=== PATIENT | male | born 1990 | race Caucasian/White ===

== ENCOUNTER 2020-06-01 15:45 | Outpatient (REF) | payer OTHER, SELFPAY | END 2020-06-01 15:46 | disposition home or self-care (01) | LOC: HO.LAB 15:45 | PROVIDERS: Visit Provider Internal Medicine | DX: Z20.822 Contact with and (suspected) exposure to COVID-19 (principal) | CPT/HCPCS: 36415; C9803; U0003 ==

== ENCOUNTER → 2022-09-12 13:04 | Outpatient (BNVA) | payer MEDICAID, SELFPAY | PROVIDERS: PCP Registered Nurse; Visit Provider Nurse Practitioner Family | DX: R40.0 Somnolence (principal); R06.83 Snoring; G47.9 Sleep disorder, unspecified | CPT/HCPCS: 99202 ==

== ENCOUNTER → 2022-10-29 14:49 | Outpatient (REF) | payer MEDICAID, SELFPAY | LOC: HO.SL 14:49 | PROVIDERS: Visit Provider Nurse Practitioner Family | DX: G47.9 Sleep disorder, unspecified (principal); R40.0 Somnolence; R06.83 Snoring | CPT/HCPCS: 95806 ==

== ENCOUNTER 2024-11-21 09:19 | Outpatient (REF) | payer MEDICAID, SELFPAY ==
--- OUTSIDE RECORDS SUMMARY | 2024-11-21 09:48 | XMS_ITS | Clinical Summary ---
Author Organization [email or web address] Address [address] [place] [address] [address] [place] [address] Care Team Providers Care Roll Mechanic Name Role Phone Name, Ed FOWLER Primary Care Provider [phone] Allergies No known active allergies Medications albuterol 108 (90 Base) MCG/ACT inhaler Inhale 2 puffs every 6 (six) hours if needed for wheezing. 18 g 11 09/20/2024 Active Active Problems Problem Noted Date Diagnosed Date Insomnia 07/04/2022 Assessment & Plan (07/04/2022 10:08 AM EST): Referral to sleep medicine sent for snoring and insomnia Ordered melatonin for assistance falling asleep. Depression 07/04/2022 Assessment & Plan (07/04/2022 10:12 AM EST): BHN referral sent Vasectomy evaluation 07/04/2022 Myopia of both eyes 07/03/2022 Encounters Date Type Department Care Team Description 11/11/[address] [facility] [address] [place] [address] Maggie Moncada, OD 11/03/[address] [facility] [address] [place], [place] [phone] Timmy Abbasi MA january recalls 10/28/2024 10:30 AM EDT Office Visit [facility] [address] [place], [place] [phone] Maggie Moncada, OD Severe myopia of both eyes (Primary Dx) 09/27/2024 1:30 PM EDT Office Visit [facility] [address] [place] [address] Antwan, Maggie, OD Ptosis, congenital, right (Primary Dx); High myopia, bilateral 09/27/2024 Travel 09/20/2024 10:15 AM EDT Office Visit [facility] [address] [place] [address] Ed Felipe MD Mild intermittent asthma without complication (Primary Dx); Screening for diabetes mellitus; Screening for cholesterol level; Family planning advice 09/20/2024 Travel 09/19/[address] [facility] [address] [place] [address] Yvette Patel MA Chart Prep 09/12/[address] [facility] [address] [place] [address] Ed Felipe MD Pre-visit Planning (SDOH screening completed on 06/06/24) from Last 3 Months Immunizations Immunization Administration Dates Next Due Influenza injectable quadrivalent preservative f ree 06/27/2022 Family History Medical History Relation Name Comments Asthma Brother Lupus Father Diabetes Maternal Grandmother Hypertension Maternal Grandmother Diabetes Mother Relation Name Status Comments Brother Father Maternal Grandmother Mother Social History Tobacco Use Types Packs/Day Years Used Date Smoking Tobacco: Never Smokeless Tobacco: Never Tobacco Cessation:Counseling Given: Not Answered Alcohol Use Standard Drinks/Week Comments Never 0 (1 standard drink = 0.6 oz pur e alcohol) Depression Answer Date Recorded Patient Health Questionnaire-9 Score 4 09/20/2024 Patient Health Questionnaire-9 Score 4 09/20/2024 Last PHQ-9: Questionnaire Data Not on file 0 09/20/2024 Housing Stability Answer Date Recorded What is your housing situation today? I have radhika gu 06/06/[address] you li ve. Do you have problems with any of the following? None of the above 06/06/2024 Food Insecurity Answer Date Recorded Within the past 12 months, y ou worried that your food would run out before you got money to buy more: Never True 06/06/2024 Within the past 12 months,th e food you bought just didn't last and you didn't have enough money to get more: Never True 07/2024 Transportation Answer Date Recorded In the past 12 months, has l ack of transportation kept you from medical appts, meetings, work or from getting things needed for daily living? No 06/06/2024 Utilities Answer Date Recorded In the past 12 months, has t he electric, gas, oil or water company threatened to shut off services in your home? No 06/06/2024 Depression Answer Date Recorded Patient Health Questionnaire-2 Score 1 09/20/2024 Internet Access Answer Date Recorded Internet Access Q1 Yes 06/06/2024 Internet Access Q2 Not on file 06/06/2024 Sex and Gender Information Value Date Recorded Sex Assigned at Male 03/03/2022 10:30 AM EDT Legal Sex Male 10:30 AM EDT Gender Identity Male 03/03/2022 10:30 AM EDT Sexual Orientation Straight 03/03/2022 10 :30 AM EDT Occupation Industry Job Start Date Job End Date [employer] Not on file Not on file Not on file Last Filed Vital Signs Vital Sign Reading Time Taken Comments Blood Pressure 122/72 09/20/2024 10:08 AM EDT Pulse 67 09/20/2024 10:08 AM EDT Temperature 36.7 C (98.1 F) 09/20/2024 10:08 AM EDT Respiratory Rate 18 09/20/2024 10:08 AM EDT Oxygen Saturation 98% 09/20/2024 10:08 AM EDT Inhaled Oxygen Concentration - - Weight 60 kg (132 lb 3.2 oz) 09/20/2024 10:08 AM EDT Height 167.6 cm (5' 6 ) 09/20/2024 10:08 AM EDT Body Mass Index 21.34 09/20/2024 10:08 AM EDT Plan of Treatment Upcoming Encounters Date Type Department Care Team (Late st Contact Info) Description 02/02/2025 9:00 AM EDT Office Visit [facility] [address] [place] [id number] Name, MD Ed [address] [place] [address] Health Maintenance Due Date Last Done Comments Family Planning (PISQ) 2007 HPV Vaccines (1 - Male 3-dos e series) 2007 DTaP/Tdap/Td Vaccines (1 - Tdap) 2011 Hepatitis B Vaccines (1 of 3 - 19+ 3-dose series) 2011 Pneumococcal Vaccine: Pediatrics (0 to 5 Years) and At-Risk Patients (6 to 49) Years (1 of 2 - PCV) 2011 Dental Oral Exam 06/20/2016 12/18/2015 Dental X-Ray: Bitewings 12/18/2016 12/18/2015 Dental Prophylaxis 12/25/2016 06/26/2016 COVID-19 Vaccine (3 - 2023-2 5 season) 2024 02/24/2022, 02/03/2022 Dental X-Ray: Full Mouth 04/06/2024 021, 12/20/2015, 12/18/2015 Influenza Vaccine (#1) 2025 06/27/2022 SDOH Screening 06/06/2025 06/06/2024 Alcohol/Substance Use Screening 09/20/2025 09/20/2024 Depression Screening 09/20/2025 09/20/2024, 09/20/2024 Disability Screening 09/20/2025 09/20/2024 Tobacco Screening 10/08/2025 10/08/2024 Zoster Vaccines (1 of 2) 2042 RSV Patients and Patients Aged 60 years or older (1 - 1-dose 75+ series) 2067 HIV Screening Completed 07/04/2022 Hepatitis C Screening Completed 07/04/2022 HIB Vaccines Aged Out No longer eligi ble based on patient's age to complete this topic Hepatitis A Vaccines Aged Out No long er eligible based on patient's age to complete this topic IPV Vaccines Aged Out No longer eligi ble based on patient's age to complete this topic Meningococcal B Vaccine Aged Out No l onger eligible based on patient's age to complete this topic Meningococcal Vaccine Aged Out No jeremy louie eligible based on patient's age to complete this topic RSV under 20 months Aged Out No longe r eligible based on patient's age to complete this topic Rotavirus Vaccines Aged Out No longer eligible based on patient's age to complete this topic Procedures Procedure Name Priority Date/Time Associated Diagnosis Comments HEPATITIS C AB W/REFL TO HCV RNA, QN, PCR Routine 07/04/2022 10:06 AM EST Routine health maintenance HIV 1 RNA, QN PCR W/RFL CARMEN (RTI,PI,INTEGRASE) Routine 07/04/2022 10:06 AM EST Routine health maintenance PANORAMIC RADIOGRAPHIC IMAGE Routine 04/05/2021 12:00 AM EST PROPHYLAXIS - ADULT Routine 06/26/2016 1 2:00 AM EST INTRAORAL - COMPLETE SERIES OF RADIOGRAPHIC IMAGES Routine 12/18/2015 12:00 AM EDT COMPREHENSIVE ORAL EVALUATION - NEW OR ESTABLISHED PATIENT Routine 12/18/2015 12:00 AM EDT from Last 3 Months or Most Recently Relevant to Health Maintenance Results * HIV-1 RNA, Quantitative, Real-Time PCR with Reflex to Genotype (RTI, PI, Integrase) (07/04/2022 10:06 AM EST) HIV 1 RNA, QN PCR NOT DETECTED copies/mL [facility], HIV 1 RNA, QN PCR NOT DETECTED Log copies/mL [facility] [employer] [facility], Comment: REFERENCE RANGE: NOT DETECTED copies/mL NOT DETECTED Log copies/mL This test was performed using Real-Time Polymerase Chain Reaction. Reportable range is 20 to 10,000,000 copies/mL (1.30-7.00 Log copies/mL). 07/04/2022 10:0 6 AM EST 07/04/2022 10:07 AM EST Narrative [facility] - 07/08/2022 6:29 PM EST FASTING:YES FASTING: YES Vel [facility] LAB BLOOD ORDERABLES Final Res ult [facility] [address], [place] [address] [facility], [address] [place] [address] * Hepatitis C Antibody with Reflex to HCV, RNA, Quantitative, Real-Time PCR (07/04/2022 10:06 AM EST) Hepatitis C Antibody NON-REACT KEVIN NON-REACT KEVIN [facility] [place] [facility] Index 0.07 <1.00 [facility] Comment: HCV antibody was non-reactive. There is no laboratory evidence of HCV infection. In most cases, no further action is required. However, if recent HCV exposure is suspected, a test for HCV RNA (test code 94546) is suggested. For additional information please refer to http://education.[facility]/faq/ZJI12s0 (This link is being provided for informational/ educational purposes only.) Blood Venous blood specimen / Unknown 07/04/2022 10:06 AM EST 07/04/2022 10:07 AM EST Narrative [facility] - 07/08/2022 6:29 PM EST FASTING:YES FASTING: YES Vel Haile [facility] LAB BLOOD ORDERABLES Final Res ult [facility] [address] [place] [address] [facility] [place] [facility] [address] [facility] [address] [place] [address] from Last 3 Months or Most Recently Relevant to Health Maintenance Insurance [facility] C3 DENTAL-[facility] MEDICAID STAND ADULT Care Teams Roll Mechanic Relationship Specialty Start Date End Date Name, MD Ed [address] [place] [id number] PCP - General Internal Medicine 09/20/24
--- OUTSIDE RECORDS SUMMARY | 2024-11-21 09:48 | XMS_ITS | Encounter Summary ---
Author Organization [facility] Address [address] [place] [phone] Phone Care Team Providers Care Loom Cleaner Name Role Phone Unknown, Unknown MD Primary Care Provider Eli wallis Encounter Details Date Type Department Care Team (Latest Contact Info) Description 07/07/2022 Transcribe Orders [facility] LAB SPECIMEN [address] [place] [address] Janell Vernon PA-C [address] [place] [id number] [email or web address] Atrial flutter, unspecified type (Primary Dx) Social History Tobacco Use Types Packs/Day Years Used Date Smoking Tobacco: Never Alcohol Use Standard Drinks/Week Comments Never 0 (1 standard drink = 0.6 oz pur e alcohol) Sex and Gender Information Value Date Recorded Sex Assigned at Not on file Legal Sex Male 6:38 PM EDT Gender Identity Not on file Sexual Orientation Not on file documented as of this encounter Plan of Treatment Not on file documented as of this encounter Procedures Procedure Name Priority Date/Time Associated Diagnosis Comments BASIC METABOLIC PANEL Routine 07/07/2022 10:30 AM EST Atrial flutter, unspecified type documented in this encounter Results * (ABNORMAL) Basic metabolic panel (07/07/2022 10:30 AM EST) SODIUM 142 136 - 145 mmol/L [facility] CHLORIDE 103 95 - 106 mmol/L [facility] POTASSIUM 5.1 3.5 - 5.2 mmol/L [facility] Comment:Specimen received un spun, which could cause a false increase in potassium. Interpret results with caution. CO2 20 20 - 31 mmol/L [facility] BUN 72(H) 9 - 23 mg/dL [facility] CREATININE 3.13(H) 0.50 - 1.30 mg/dL [facility] GLUCOSE 109(H) 74 - 106 mg/dL [facility] Comment:Specimen received un spun, which could cause a false decrease in glucose. Interpret results with caution. CALCIUM 9.8 8.7 - 10.4 mg/dL [facility] EGFR 26(L) >60 mL/min/1.7 3m2 [facility] Comment:Estimated glomerular filtration rate calculated using the CKD-EPI refit equation. ANION GAP 19(H) 3 - 17 mmol/L [facility] 07/07/2022 10:3 0 AM EST 07/07/2022 4:57 PM EST Janell Vernon PA-C LAB BLOOD ORDERABLES Final Result Performing Organization Address City/State/[facility] Co de Phone Number [facility] [address] [place] [address] documented in this encounter Visit Diagnoses Diagnosis Atrial flutter, unspecified type- Primary documented in this encounter Care Teams Loom Cleaner Relationship Specialty Start Date End Date Unknown, Unknown, PCP - General 07/24/18 documented as of this encounter Additional Source Comments The information contained in this document represents components of the legal health record. It is not the complete legal health record.[facility]
[2024-11-21 12:12] LABS: Alanine Aminotransferase 22 U/L (0-40); Albumin Level 4.5 g/dL (3.5-5.0); Alkaline Phosphatase 72 U/L (39-117); Anion Gap 12 (12-20); Aspartate Amino Transferase 39 U/L (5-37); Blood Urea Nitrogen 12 mg/dL (9-16); Calcium 9.3 mg/dL (8.4-10.2); Carbon Dioxide 24 mmol/L (22-29); Chloride 108 mmol/L (96-108); Cholesterol 205 mg/dL (<200); Estimated Glomerular Filt Rate > 60; HDL Cholesterol 40 mg/dL (>40); Potassium 4.4 mmol/L (3.3-5.1); Sodium 140 mmol/L (135-145); Total Protein 7.6 g/dL (6.5-8.0); Triglycerides 126 mg/dL (<150)
== END 2024-11-21 09:20 | disposition home or self-care (01) ==
LOC: HO.HHCL 09:19
PROVIDERS: PCP Internal Medicine Geriatric Medicine; Visit Provider Internal Medicine Geriatric Medicine
DX: Z13.1 Encounter for screening for diabetes mellitus (principal)
CPT/HCPCS: 36415; 80053; 80061